=== PATIENT | female | born 1955 | race Two or more races ===

== ENCOUNTER 2017-09-04 11:52 | Outpatient (CLI) | payer OTHER | END 2017-09-04 12:23 | disposition home or self-care (01) | LOC: MAMO-SONO 11:52 | DX: C50.919 Malignant neoplasm of unspecified site of unspecified female breast (principal) ==

== ENCOUNTER 2018-01-22 07:38 | Outpatient (CLI) | payer OTHER | END 2018-01-22 12:52 | disposition home or self-care (01) | LOC: NUCLEAR 07:38 | DX: R07.89 Other chest pain (principal); I25.10 Atherosclerotic heart disease of native coronary artery without angina pectoris | CPT/HCPCS: A9500; 93017; 78452 ==

== ENCOUNTER 2018-02-20 13:37 | Outpatient (CLI) | payer OTHER | END 2018-02-20 13:38 | disposition home or self-care (01) | LOC: SONOGRAMA 13:37 | DX: E03.8 Other specified hypothyroidism (principal); E04.8 Other specified nontoxic goiter ==

== ENCOUNTER 2019-03-14 13:58 | Outpatient (CLI) | payer OTHER | END 2019-03-14 14:40 | disposition home or self-care (01) | LOC: NUCLEAR 13:58 | DX: M81.0 Age-related osteoporosis without current pathological fracture (principal) ==

== ENCOUNTER → 2019-04-04 | Outpatient (CLI) | payer OTHER | END | disposition home or self-care (01) | LOC: MAMO-SONO 03-20 09:45 | DX: E04.1 Nontoxic single thyroid nodule (principal); E03.8 Other specified hypothyroidism; Z12.31 Encounter for screening mammogram for malignant neoplasm of breast; Z87.898 Personal history of other specified conditions ==

== ENCOUNTER → 2021-03-19 | Outpatient (CLI) | payer OTHER | END | disposition home or self-care (01) | LOC: NUCLEAR 13:30 | PROVIDERS: ATTEND Internal Medicine Sports Medicine | DX: M81.0 Age-related osteoporosis without current pathological fracture (principal) ==

== ENCOUNTER 2021-03-31 14:00 | Outpatient (CLI) | payer OTHER | END 2021-03-31 14:10 | disposition home or self-care (01) | LOC: MAMO-SONO 14:00 | PROVIDERS: ATTEND Internal Medicine Sports Medicine | DX: E04.2 Nontoxic multinodular goiter (principal); Z12.31 Encounter for screening mammogram for malignant neoplasm of breast; N64.89 Other specified disorders of breast ==

== ENCOUNTER 2023-05-08 09:45 | Outpatient (CLI) | payer OTHER | END 2023-05-08 09:59 | disposition home or self-care (01) | LOC: NUCLEAR 09:45 | PROVIDERS: ATTEND Internal Medicine Sports Medicine | DX: R42 Dizziness and giddiness (principal); I10 Essential (primary) hypertension; R06.09 Other forms of dyspnea; M81.0 Age-related osteoporosis without current pathological fracture ==

== ENCOUNTER 2023-05-11 07:59 | Outpatient (CLI) | payer OTHER | END 2023-05-11 08:15 | disposition home or self-care (01) | LOC: MAMO-SONO 07:59 | PROVIDERS: ATTEND Internal Medicine Sports Medicine | DX: Z12.31 Encounter for screening mammogram for malignant neoplasm of breast (principal) ==

== ENCOUNTER 2024-11-01 07:42 | Day surgery (SDC) | payer OTHER ==
[2024-11-01] MEDS ORDERED: fentaNYL CITRATE 50 MCG/ML AMPUL IV PUSH ONE (11:45)
[2024-11-01] MEDS ORDERED: MIDAZOLAM HCL 2 MG/2 ML VIAL IV ONE (11:45)
[2024-11-01] MEDS ORDERED: DIPHENHYDRAMINE HCL 50 MG/ML VIAL 1ML IV ONE (11:45)
== END 2024-11-01 12:45 | disposition home or self-care (01) ==
LOC: AMB-ENDOS 07:42
PROVIDERS: ATTEND Surgery
DX: D12.3 Benign neoplasm of transverse colon (principal); K63.5 Polyp of colon

== ENCOUNTER 2024-11-13 13:32 | Outpatient (CLI) | payer OTHER | END 2024-11-13 13:41 | disposition home or self-care (01) | LOC: MAMO-SONO 13:32 | PROVIDERS: ATTEND Internal Medicine Sports Medicine | DX: Z12.39 Encounter for other screening for malignant neoplasm of breast (principal); Z12.31 Encounter for screening mammogram for malignant neoplasm of breast ==

== ENCOUNTER → 2025-05-13 10:49 | Outpatient (CLI) | payer OTHER | END | disposition home or self-care (01) | LOC: NUCLEAR 10:49 | PROVIDERS: ATTEND Internal Medicine Sports Medicine | DX: M81.0 Age-related osteoporosis without current pathological fracture (principal) ==